=== PATIENT | male | born 1950 | race Caucasian/White ===

== ENCOUNTER → 2017-04-02 | Outpatient (CLI) | payer MEDICARE, OTHER ==
[~2017-04-02] MED LIST: CRESTOR 10MG10 MG PO; FLEXERIL 1010 MG/TAB PO; LOPRESSOR 550 MG/TAB; MICROZIDE12.5 MG; PERCOCET 325 MG1 TA2 PO
== END ==
LOC: COL.RAD 09:17
DX: N18.9 Chronic kidney disease, unspecified (principal)

== ENCOUNTER 2018-04-02 07:16 | Day surgery (SDC) | payer MEDICARE, OTHER ==
[~2018-04-02] VITALS: Ht 167.6 cm; Wt 74.8 kg
[~2018-04-02 07:16] MED LIST changes: -LOPRESSOR 550 MG/TAB; +LOPRESSOR 550 MG/TAB PO
[2018-04-02 07:49] VITALS: BP 161/91; PULSE 66; TEMP 97.4
[2018-04-02] MEDS ORDERED: LOPRESSOR 550 MG/TAB PO (07:59)
[2018-04-02] MEDS ORDERED: MULTI VITAMINS1 TAB PO (08:01)
[2018-04-02] MEDS ORDERED: GLUCOPHAGE500 MG/TAB PO (08:01)
[2018-04-02] MEDS ORDERED: GLUCOPHAGE XR500 M1 PO (08:01)
[2018-04-02] MEDS ORDERED: MASON NATURAL1200 MG PO (08:02)
--- NOTE | 2018-04-02 08:03 | NUR ---
TO RM AT 0725- CALL LIGHT IN REACH AT BEDSIDE
[2018-04-02 08:50] VITALS: BP 116/67; PULSE 65; TEMP 97.2
--- NOTE | 2018-04-02 08:50 | NUR ---
PATIENT BACK FROM ENDO SUITE AFTER COLONOSCOPY. PATIENT AMBULATED TO CHAIR WITH NURSE ASSIST. DOES NOT WANT FOOD OR DRINK. AT BEDSIDE.
[2018-04-02 09:00] VITALS: BP 94/57; PULSE 60
--- NOTE | 2018-04-02 09:00 | NUR ---
PATIENT APPEARS TO BE RESTING. VS APPEAR STABLE. WILL CONTINUE TO MONITOR.
[2018-04-02 09:15] VITALS: BP 99/60; PULSE 61
--- NOTE | 2018-04-02 09:15 | NUR ---
PATIENT AWAKE, WOULD NOW LIKE FOOD AND DRINK, WILL GET FOR PATIENT. WILL WAIT FOR PATIENT TO EAT AND DRINK. VS APPEAR STABLE. WILL CONTINUE TO MONITOR. REMAINS AT BEDSIDE.
--- NOTE | 2018-04-02 09:30 | NUR ---
PATIENT HAS NO COMPLAINTS OF N/V WITH FOOD AND DRINK. DR HAS SEEN PATIENT. VS APPEAR STABLE WILL DISCHARGE PATIENT.
[2018-04-02 09:35] VITALS: BP 116/71; PULSE 54
== END 2018-04-02 09:43 | disposition home or self-care (01) ==
LOC: SDCO 07:16
DX: R19.7 Diarrhea, unspecified (principal); K57.30 Diverticulosis of large intestine without perforation or abscess without bleeding; Z79.899 Other long term (current) drug therapy; E78.00 Pure hypercholesterolemia, unspecified; I10 Essential (primary) hypertension
CPT/HCPCS: OP; J2250; J2405; J3010; J7030